=== PATIENT | female | born 1985 | race African-American/Black ===

== ENCOUNTER 2018-10-30 22:38 | Emergency (ER) | payer SELFPAY ==
[~2018-10-30] VITALS: Ht 152.4 cm; Wt 68.0 kg
[2018-10-30 23:07] VITALS: BP 100/70
[2018-10-31] MEDS ORDERED: TETRACAINE 0.5% OPHTH DROPS 4ML OP ONE
[2018-10-31] MEDS ORDERED: FLUORESCEIN SODIUM 1MG/STRIP OP ONE (00:15)
[2018-10-31 01:09] LABS: HCG SCREEN NEGATIVE
== END 2018-10-31 05:20 | disposition home or self-care (01) ==
LOC: ER 22:38
DX: H10.022 Other mucopurulent conjunctivitis, left eye (principal)
CPT/HCPCS: 81025; 84703; 99283